=== PATIENT | male | born 1975 | race Hispanic/Latino ===

== ENCOUNTER 2016-12-01 16:59 | Observation (INO) | payer BC ==
[2016-12-01] MEDS ORDERED: Sodium Chloride 0.9% 1,000 ML IV STA (17:52)
[2016-12-01 18:21] LABS: BASO # 0.1 K/uL (0.0-0.2); BASO % 0.5 % (0.0-2.0); EOS # 0.1 K/uL (0.0-0.7); EOS % 0.8 % (0.0-4.0); LYMPH # 1.9 K/uL (1.0-4.3); LYMPH % 13.1 % (20.0-40.0); MEAN CELL VOLUME 90.5 fL (80.0-94.0); MEAN CORPUSCULAR HEMOGLOBIN 29.6 pg (27.0-31.0); MEAN CORPUSCULAR HGB CONC 32.7 g/dL (33.0-37.0); MEAN PLATELET VOLUME 10.5 fL (7.2-11.7); MONO # 1.1 K/uL (0.0-0.8); MONO % 7.3 % (0.0-10.0); RED CELL DISTRIBUTION WIDTH 12.2 % (11.5-14.5); WHITE BLOOD COUNT 14.3 K/uL (4.8-10.8)
[2016-12-01 18:23] LABS: RBC URINE < 1 /hpf (0-3); URINE BILIRUBIN NEGATIVE (NEGATIVE); URINE BLOOD NEGATIVE (NEGATIVE); URINE COLOR Colorless (YELLOW); URINE GLUCOSE (UA) 3+ mg/dL (Normal); URINE KETONE NEGATIVE (NEGATIVE); URINE LEUKOCYTE ESTERASE NEG Leu/uL (Negative); URINE PROTEIN NEGATIVE (NEGATIVE); URINE UROBILINOGEN NORMAL mg/dL (0.2-1.0); WBC URINE < 1 /hpf (0-5)
[2016-12-01 18:26] LABS: CHLORIDE 86 mmol/L (98-107); POTASSIUM 5.5 mmol/L (3.6-5.2); SODIUM 125 mmol/L (132-148)
[2016-12-01 18:28] LABS: GFR AFRICAN-AMERICAN > 60
[2016-12-01 18:29] LABS: ALB/GLOB RATIO 1.2 (1.0-2.1); ALKALINE PHOSPHATASE 133 U/L (38-126); ALT/SGPT 30 U/L (21-72); AST/SGOT 23 U/L (17-59); BILIRUBIN,TOTAL 1.1 mg/dL (0.2-1.3); BLOOD UREA NITROGEN 7 mg/dL (9-20); CALCIUM 9.1 mg/dl (8.6-10.4); CARBON DIOXIDE 22 mmol/L (22-30); TOTAL PROTEIN 8.3 g/dL (6.3-8.3)
[2016-12-01 18:46] LABS: GLUCOSE,RANDOM 958 mg/dL (75-110)
[2016-12-01] MEDS ORDERED: Sodium Chloride 0.9% 1,000 ML IV ONE (18:48)
[2016-12-01] MEDS ORDERED: (Novolin R) Insulin Human Regular 100 units/ml vial IV STA (18:48)
[2016-12-01] MEDS ORDERED: (Novolin R) Insulin Human Regular 100 units/ml vial ONE (18:52)
[2016-12-01] MEDS ORDERED: Sodium Chloride 0.9% 2,000 ML ONE (18:52)
--- NOTE | 2016-12-01 19:14 | C.PDOC ---
Time Seen by Provider: 12/01/16 17:43 Chief Complaint (Nursing): High Blood Sugar History Per: Patient Onset/Duration Of Symptoms: Days (about 1 week) Current Symptoms Are (Timing): Still Present Severity: Severe Current Diabetic Medications: None Associated Infectious Symptoms: Cough, Urinary Frequency, Nausea, Vomiting Treatment Prior To Provider Evaluation: Accucheck Additional History Per: Prior Records Past Medical History Reviewed: Historical Data, Nursing Documentation, Vital Signs Vital Signs: Last Vital Signs Temp 98.8 F 12/01/16 17:07 Pulse 104 H 12/01/16 18:45 Resp 18 12/01/16 18:45 BP 129/82 12/01/16 18:45 Pulse Ox 96 12/01/16 19:15 - Medical History PMH: Anxiety, Depression, Migraine Surgical History: No Surg Hx Family History: States: No Known Family Hx - Social History Hx Tobacco Use: No Hx Alcohol Use: Yes Hx Substance Use: No - Immunization History Hx Tetanus Toxoid Vaccination: No Hx Influenza Vaccination: No Hx Pneumococcal Vaccination: No Review Of Systems Except As Marked, All Systems Reviewed And Found Negative. Constitutional: Positive for: Malaise Cardiovascular: Negative for: Chest Pain Respiratory: Positive for: Cough. Negative for: Shortness of Breath, Hemoptysis Gastrointestinal: Positive for: Nausea, Vomiting. Negative for: Abdominal Pain Genitourinary: Positive for: Frequency Musculoskeletal: Negative for: Neck Pain, Back Pain Skin: Negative for: Rash Neurological: Negative for: Weakness, Numbness, Seizures, Altered Mental Status Physical Exam - Physical Exam Appears: In Acute Distress (mild) Skin: Normal Color, Warm, Dry, No Rash Head: Atraumatic, Normacephalic Eye(s): bilateral: PERRL, EOMI Oral Mucosa: Dry Neck: Normal ROM, Supple Cardiovascular: Rhythm Regular Respiratory: Normal Breath Sounds, No Accessory Muscle Use Gastrointestinal/Abdominal: Soft, No Tenderness Back: No CVA Tenderness Extremity: Normal ROM Neurological/Psych: Oriented x3, Normal Motor, Normal Sensation ED Course And Treatment - Laboratory Results Result Diagrams: 12/01/16 18:09 12/01/16 18:09 Lab Interpretation: Abnormal Interpretation Of Abnormal: Severe hyperglycemia. Negative ketones. ECG: Interpreted By Me, Viewed By Me ECG Rhythm: Sinus Tachycardia, Nonspecific Changes Rate From EC O2 Sat by Pulse Oximetry: 96 Pulse Ox Interpretation: Normal - Radiology CXR: Interpreted by Me, Viewed By Me CXR Interpretation: Yes: No Acute Disease Progress - Interventions Interventions:: Observation, Intravenous fluid - Medications Administered Intravenous: Other (Insulin) - Data Reviewed Data Reviewed: Lab, Diagnostic imaging, EKG, Old records - Patient Status Patient status: Partially improved - Critical Care Citical Care: Excluding Proc Time Critical Care Time: 45 minutes - Continuity of Care Discussed patient case with:: Patient, ED Nurse, Covering for PMD - Patient Plan Patient Plan: Admission Disposition Discussed With : Miguel Angel Goncalves Comment: He accepted pt on hospitalist service. Doctor Will See Patient In The: Hospital Counseled Patient/Family Regarding: Studies Performed, Diagnosis - Disposition Disposition: HOSPITALIZED Disposition Time: 19:30 Condition: SERIOUS - Clinical Impression Clinical Impression: Diabetes mellitus, new onset, Hyperglycemia
--- NOTE | 2016-12-01 20:27 | RAD ---
PROCEDURE: CHEST RADIOGRAPH, 1 VIEW HISTORY: Cough. Hyperglycemia COMPARISON: 12/01/2016 FINDINGS: LUNGS: Mild venous congestion. Mammilated left hemidiaphragm. PLEURA: No pneumothorax or pleural fluid seen. CARDIOVASCULAR: Mild cardiomegaly. OSSEOUS STRUCTURES: No significant abnormalities. VISUALIZED UPPER ABDOMEN: Few distended loops of small bowel in the upper abdomen. OTHER FINDINGS: None. IMPRESSION: Mild venous congestion. Few distended loops of small bowel in the upper abdomen.
--- NOTE | 2016-12-01 20:46 | CP.PCM.HP ---
<Prince Fish - Last Filed: 12/01/16 23:21> History of Present Illness - History of Present Illness History of Present Illness: CC: "increased thirst, nausea/vomiting, vision change" 41 M with PMH of Anxiety and Depression presents to [facility] ED with complaint of increased thirst, nausea/vomiting, vision change since last . Patient woke up and was feeling terrible. He thought it was related to his depression because he has intermittently experienced similar symptoms to a lesser extent in the past. He also had associated abdominal discomfort, joint pain, polyphagia and polyuria. Patient reports that he was vomiting 4-5 times per day, which was the color of the liquids/food he attempted to consume. His symptoms had gotten progressively worse since the onset. Today, his symptoms did not resolve so he decided to be seen. Patient's step father has DM so once he symptoms did not resolve he suspected he may have high blood sugar. Patient currently denying any abdominal pain. He stated that at its worst it was 4-5/10 in severity. He described the pain as a intermittent discomfort that was diffusely located throughout the abdomen. Patient stated eating/drinking exacerbates his symptoms while nothing alleviates them. Also admits fatigue, vision changes, diarrhea, sob. Denies fever/chills, cp, palpitations, weakness, motor/sensory deficits, dizziness/lightheadedness, vertigo, syncope, headache, incontinence, dyuria. numbnes/tingling. PMD: Dr. 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 Present on Admission - Present on Admission Any Indicators Present on Admission: Yes History of DVT/PE: No History of Uncontrolled Diabetes: Yes Urinary Catheter: No Decubitus Ulcer Present: No Review of Systems - Review of Systems All systems: reviewed and no additional remarkable complaints except (as per HPI ) Past Patient History - Past Social History Smoking Status: Never Smoked - NEUROLOGICAL Hx Migraine: Yes - PSYCHIATRIC Hx Anxiety: Yes Hx Depression: Yes Hx Substance Use: No - SURGICAL HISTORY Other/Comment: Kidney procedure - ANESTHESIA Hx Anesthesia: Yes Hx Anesthesia Reactions: No Meds Allergies/Adverse Reactions: Allergies Allergy/AdvReac Type Severity Reaction Status Date / Time hay Allergy Uncoded 12/01/16 17:16 Physical Exam - Constitutional Appears: No Acute Distress - Head Exam Head Exam: ATRAUMATIC, NORMOCEPHALIC - Eye Exam Eye Exam: EOMI, Normal appearance Pupil Exam: PERRL - ENT Exam ENT Exam: Mucous Membranes Moist - Neck Exam Neck exam: Positive for: Normal Inspection - Respiratory Exam Respiratory Exam: Clear to Auscultation Bilateral, NORMAL BREATHING PATTERN - Cardiovascular Exam Cardiovascular Exam: Tachycardia (104), REGULAR RHYTHM, +S1, +S2 - GI/Abdominal Exam GI & Abdominal Exam: Hyperactive Bowel Sounds, Soft. absent: Distended, Firm, Guarding, Rebound, Tenderness - Extremities Exam Extremities exam: Positive for: normal capillary refill, pedal pulses present. Negative for: calf tenderness, pedal edema - Back Exam Back exam: absent: CVA tenderness (L), CVA tenderness (R) - Neurological Exam Neurological exam: Alert, CN II-XII Intact, Oriented x3, Reflexes Normal - Psychiatric Exam Psychiatric exam: Normal Affect, Normal Mood - Skin Skin Exam: Dry, Intact, Normal Color, Warm Results - Vital Signs Recent Vital Signs: Last Vital Signs Temp 98.8 F 12/01/16 17:07 Pulse 104 H 12/01/16 18:45 Resp 18 12/01/16 18:45 BP 129/82 12/01/16 18:45 Pulse Ox 96 12/01/16 20:00 - Labs Result Diagrams: 12/01/16 18:09 12/01/16 18:09 Assessment & Plan - Assessment and Plan (Free Text) Plan: 1. New Onset DM med/surg CXR: mild venous congestion, distended loop of small bowel EKG ISS ACHS HA1c, TSH/T4, Lipid panel ECHO NS 70 cc/hr 2. Abdominal pain Zofran 4 mg IVP Q6H PRN Protonix 40 mg IVP daily NS 70 cc/hr CT abd/Pelvis CXR: mild venous congestion, distended loop of small bowel 3. Anxiety/Depression Effexor 300 mg PO daily Seroquel 300 mg PO HS 4. Prophylactic Measures Zofran 4 mg IVP Q6H PRN Lovenox 40 mg SC daily Protonix 40 mg IVP daily <Miguel Angel Goncalves - Last Filed: 12/02/16 06:16> Results - Vital Signs Recent Vital Signs: Last Vital Signs Temp 98.5 F 12/02/16 00:00 Pulse 112 H 12/02/16 00:00 Resp 20 12/02/16 00:00 BP 110/71 12/02/16 00:00 Pulse Ox 95 12/02/16 00:00 - Labs Result Diagrams: 12/01/16 18:09 12/01/16 18:09 Labs: Laboratory Results - last 24 hr 12/01/16 12/02/16 21:09 02:13 POC Glucose (mg/dL) 368 H 337 H Assessment & Plan - Date & Time Date: 12/02/16 (I have seen and examined the patient. I agree with the findings and plan of care as documented by Dr. Fish. Patient with new onset diabetes. Accuchecks. Hemoglobin A1C. NISS. Consider starting patient on metformin. Also with abdominal pain. N/V. Check CT abd/pelvis. Symptomatic treatment. Monitor for acute changes.) Time: 06:15 Attending/Attestation - Attestation I have personally seen and examined this patient.: Yes I have fully participated in the care of the patient.: Yes I have reviewed all pertinent clinical information: Yes
[2016-12-01] MEDS: Sodium Chloride 0.9% 1,000 ML IV SCH (21:12)
[2016-12-01] MEDS: (Novolin R) Insulin Human Regular 100 units/ml vial SC SCH (22:22)
[2016-12-01 22:53] VITALS: RESP 20
[2016-12-02 07:59] LABS: INR 1.2
[2016-12-02 08:06] LABS: HEMATOCRIT 37.5 % (35.0-51.0); MONO % 7.3 % (0.0-10.0); WHITE BLOOD COUNT 13.3 K/uL (4.8-10.8)
[2016-12-02 08:07] LABS: CHLORIDE 99 mmol/L (98-107)
[2016-12-02 08:08] LABS: POTASSIUM 3.7 mmol/L (3.6-5.2); SODIUM 135 mmol/L (132-148)
[2016-12-02 08:10] LABS: ALB/GLOB RATIO 1.1 (1.0-2.1); AST/SGOT 18 U/L (17-59); CARBON DIOXIDE 25 mmol/L (22-30); CHOLESTEROL 185 mg/dL (0-199); GFR AFRICAN-AMERICAN > 60; TOTAL PROTEIN 6.8 g/dL (6.3-8.3)
[2016-12-02 08:11] LABS: ALKALINE PHOSPHATASE 95 U/L (38-126); ALT/SGPT 27 U/L (21-72); BLOOD UREA NITROGEN 6 mg/dL (9-20); GLUCOSE,RANDOM 288 mg/dL (75-110)
[2016-12-02 08:14] LABS: BASO % 0.3 % (0.0-2.0); EOS # 0.5 K/uL (0.0-0.7); EOS % 3.4 % (0.0-4.0); LYMPH # 4.2 K/uL (1.0-4.3); LYMPH % 31.6 % (20.0-40.0); MEAN CORPUSCULAR HEMOGLOBIN 29.8 pg (27.0-31.0); MEAN CORPUSCULAR HGB CONC 34.7 g/dL (33.0-37.0); NRBC % 0.2 % (0.0-2.0); RED CELL DISTRIBUTION WIDTH 12.1 % (11.5-14.5)
[2016-12-02 08:18] VITALS: O2SAT 97
[2016-12-02 08:25] LABS: T4 7.67 ug/dL (5.5-11.0)
[2016-12-02 08:27] LABS: MEAN CELL VOLUME 85.8 fL (80.0-94.0)
[2016-12-02 08:39] LABS: THYROID STIMULATING HORMONE 3.55 mIU/L (0.46-4.68)
[2016-12-02] MEDS ORDERED: Iohexol 240 (50 ml) PO ONE (09:00)
[2016-12-02] MEDS: (Novolin R) Insulin Human Regular 100 units/ml vial SC SCH ×3 (09:06→17:20)
[2016-12-02] MEDS ORDERED: Venlafaxine 150 mg ER Cap PO SCH (10:00)
[2016-12-02] MEDS ORDERED: Enoxaparin 40 mg Syringe SC SCH (10:00)
--- NOTE | 2016-12-02 12:37 | CT ---
PROCEDURE: CT Abdomen and Pelvis with Oral contrast. HISTORY: distended loop of small bowel on cxr, nausea/vomit COMPARISON: None. TECHNIQUE: Contiguous axial images of the abdomen and pelvis. Oral contrast was administered. No IV contrast given. Coronal and Sagittal reformats generated. Radiation dose: Total exam DLP = 850.7 sick mGy-cm. This CT exam was performed using one or more of the following dose reduction techniques: Automated exposure control, adjustment of the mA and/or kV according to patient size, and/or use of iterative reconstruction technique. FINDINGS: LOWER THORAX: No evidence of acute pathology. Ground-glass small nodules seen at the left lung lower lobe measures 5 millimeter. LIVER: Moderate to mildly severe fatty liver infiltration is noted. The portal vein is patent. GALLBLADDER AND BILE DUCTS: No evidence of cholecystitis. PANCREAS: Unremarkable. No mass. No ductal dilatation. SPLEEN: Unremarkable. No splenomegaly. ADRENALS: Unremarkable. KIDNEYS AND URETERS: Diffuse enlargement of the lower pole right kidney without definite evidence of discrete mass lesion in this noncontrast exam. No evidence of hydronephrosis. No evidence of nephrolithiasis. Unremarkable. No stone or hydronephrosis. BLADDER: The urinary bladder is moderately distended. REPRODUCTIVE: Unremarkable. APPENDIX: Unremarkable. BOWEL: Mildly diffuse small bowel wall thickening suspicious for enteritis. . No obstruction. No gross mural thickening. PERITONEUM: Unremarkable. No fluid collection. No free air. LYMPH NODES: Unremarkable. No enlarged lymph nodes. VASCULATURE: Unremarkable. No aortic aneurysm. BONES: No fracture or destructive lesion. OTHER FINDINGS: None. IMPRESSION: No evidence of bowel obstruction or focal dietitian of the bowel loops. Mild diffuse small bowel wall thickening suspicious for enteritis. Moderately distended urinary bladder. Moderate to mildly severe hepatic steatosis. Diffuse enlargement of the lower pole right kidney of uncertain etiology without definite evidence of discrete mass lesion in this noncontrast exam. If indicated further assessment by ultrasound may be obtained. 5 millimeter ground-glass nodule at the left lower lobe. Six-month follow-up reassessment is suggested.
[2016-12-02] MEDS: Sodium Chloride 0.9% 1,000 ML IV SCH (12:54)
--- NOTE | 2016-12-02 16:01 | US ---
PROCEDURE: Ultrasound of the Kidneys HISTORY: please do post void - mildly distended bladder COMPARISON: Comparison is made to the previous same-day CT of the abdomen and pelvis.. TECHNIQUE: Sonogram of the kidneys. FINDINGS: RIGHT KIDNEY: Measures: 11.9 x 5.3 x 5.4 cm. Normal in size, contour and echogenicity. No stone, solid mass lesion or hydronephrosis visualized. LEFT KIDNEY: Measures: 11.4 x 4.9 x 5.5 cm. Normal in size, contour and echogenicity. No stone, solid mass lesion or hydronephrosis visualized. OTHER FINDINGS: Patient voided before the exam. The postvoid measurement of the bladder is 4.5 x 1.3 x 4 centimeter with a total volume of 12.6. IMPRESSION: Grossly unremarkable ultrasound examination of the kidneys. Calculated post void residual is 12.6 mL.
--- NOTE | 2016-12-02 16:35 | CP.PCM.DIS ---
<Nona Dowling - Last Filed: 12/02/16 16:48> Provider - Provider Date of Admission: 12/01/16 20:00 Attending physician: Miguel Angel Goncalves MD Primary care physician: Dr. Campo Consults: none Time Spent in preparation of Discharge (in minutes): 35 Diagnosis - Discharge Diagnosis (1) Diabetes mellitus, new onset Status: Acute Comment: Metformin, ASA, Crestor, Lisionpril. Check sugars 4x/day. f/u PCP Hospital Course - Lab Results Lab Results: Most Recent Lab Values WBC 13.3 K/uL (4.8-10.8) H 12/02/16 07:39 RBC 4.37 Mil/uL (4.40-5.90) L 12/02/16 07:39 Hgb 13.0 g/dL (12.0-18.0) D 12/02/16 07:39 Hct 37.5 % (35.0-51.0) 12/02/16 07:39 MCV 85.8 fL (80.0-94.0) D 12/02/16 07:39 MCH 29.8 pg (27.0-31.0) 12/02/16 07:39 MCHC 34.7 g/dL (33.0-37.0) 12/02/16 07:39 RDW 12.1 % (11.5-14.5) 12/02/16 07:39 Plt Count 252 K/uL (130-400) 12/02/16 07:39 MPV 10.0 fL (7.2-11.7) 12/02/16 07:39 Neut % (Auto) 57.4 % (50.0-75.0) 12/02/16 07:39 Lymph % (Auto) 31.6 % (20.0-40.0) 12/02/16 07:39 [place] % (Auto) 7.3 % (0.0-10.0) 12/02/16 07:39 Eos % (Auto) 3.4 % (0.0-4.0) 12/02/16 07:39 Baso % (Auto) 0.3 % (0.0-2.0) 12/02/16 07:39 Neut # 7.6 K/uL (1.8-7.0) H 12/02/16 07:39 Lymph # 4.2 K/uL (1.0-4.3) 12/02/16 07:39 [place] # 1.0 K/uL (0.0-0.8) H 12/02/16 07:39 Eos # 0.5 K/uL (0.0-0.7) 12/02/16 07:39 Baso # 0.0 K/uL (0.0-0.2) 12/02/16 07:39 PT 13.3 SECONDS (9.7-12.2) H 12/02/16 07:39 INR 1.2 12/02/16 07:39 APTT 30 SECONDS (21-34) 12/02/16 07:39 Sodium 135 mmol/L (132-148) 12/02/16 07:39 Potassium 3.7 mmol/L (3.6-5.2) 12/02/16 07:39 Chloride 99 mmol/L (98-107) 12/02/16 07:39 Carbon Dioxide 25 mmol/L (22-30) 12/02/16 07:39 Anion Gap 14 (10-20) 12/02/16 07:39 BUN 6 mg/dL (9-20) L 12/02/16 07:39 Creatinine 0.7 MG/DL (0.8-1.5) L 12/02/16 07:39 Est GFR ( Amer) > 60 12/02/16 07:39 Est GFR (Non-Af Amer) > 60 12/02/16 07:39 POC Glucose (mg/dL) 258 mg/dL (65-110) H 12/02/16 16:17 Random Glucose 288 mg/dL (75-110) H 12/02/16 07:39 Hemoglobin A1c 12.4 % (4.2-6.5) H D 12/02/16 07:39 Calcium 8.0 mg/dl (8.6-10.4) L 12/02/16 07:39 Total Bilirubin 1.0 mg/dL (0.2-1.3) 12/02/16 07:39 AST 18 U/L (17-59) 12/02/16 07:39 ALT 27 U/L (21-72) 12/02/16 07:39 Alkaline Phosphatase 95 U/L (38-126) 12/02/16 07:39 Total Protein 6.8 g/dL (6.3-8.3) 12/02/16 07:39 Albumin 3.6 g/dL (3.5-5.0) 12/02/16 07:39 Globulin 3.2 gm/dL (2.2-3.9) 12/02/16 07:39 Albumin/Globulin Ratio 1.1 (1.0-2.1) 12/02/16 07:39 Triglycerides 478 mg/dL (0-149) H D 12/02/16 07:39 Cholesterol 185 mg/dL (0-199) 12/02/16 07:39 LDL Cholesterol Direct 76 mg/dL (0-129) 12/02/16 07:39 HDL Cholesterol 24 mg/dL (30-70) L 12/02/16 07:39 Thyroxine (T4) 7.67 ug/dL (5.5-11.0) 12/02/16 07:39 TSH 3rd Generation 3.55 mIU/L (0.46-4.68) 12/02/16 07:39 Urine Color Colorless (YELLOW) 12/01/16 18:09 Urine Clarity Clear (Clear) 12/01/16 18:09 Urine pH 6.0 (5.0-8.0) 12/01/16 18:09 Ur Specific [place] 1.026 (1.003-1.030) 12/01/16 18:09 Urine Protein Negative mg/dL (NEGATIVE) 12/01/16 18:09 Urine Glucose (UA) 3+ mg/dL (Normal) H 12/01/16 18:09 Urine Ketones Negative mg/dL (NEGATIVE) 12/01/16 18:09 Urine Blood Negative (NEGATIVE) 12/01/16 18:09 Urine Nitrate Negative (NEGATIVE) 12/01/16 18:09 Urine Bilirubin Negative (NEGATIVE) 12/01/16 18:09 Urine Urobilinogen Normal mg/dL (0.2-1.0) 12/01/16 18:09 Ur Leukocyte Esterase Neg Jaime/uL (Negative) 12/01/16 18:09 Urine WBC (Auto) < 1 /hpf (0-5) 12/01/16 18:09 Urine RBC (Auto) < 1 /hpf (0-3) 12/01/16 18:09 Ur Squamous Epith Cells < 1 /hpf (0-5) 12/01/16 18:09 Serum Ketones Negative (NEGATIVE) 12/01/16 18:09 - Hospital Course Hospital Course: On admission: 41 M with PMH of Anxiety and Depression presents to [facility] ED with complaint of increased thirst, nausea/vomiting, vision change since last . Patient woke up and was feeling terrible. He thought it was related to his depression because he has intermittently experienced similar symptoms to a lesser extent in the past. He also had associated abdominal discomfort, joint pain, polyphagia and polyuria. Patient reports that he was vomiting 4-5 times per day, which was the color of the liquids/food he attempted to consume. His symptoms had gotten progressively worse since the onset. Today, his symptoms did not resolve so he decided to be seen. Patient's step father has DM so once he symptoms did not resolve he suspected he may have high blood sugar. Patient currently denying any abdominal pain. He stated that at its worst it was 4-5/10 in severity. He described the pain as a intermittent discomfort that was diffusely located throughout the abdomen. Patient stated eating/drinking exacerbates his symptoms while nothing alleviates them. Also admits fatigue, vision changes, diarrhea, sob. Denies fever/chills, cp, palpitations, weakness, motor/sensory deficits, dizziness/ lightheadedness, vertigo, syncope, headache, incontinence, dyuria. numbness/ tingling. During Hospital Stay: Patient's HbA1c was 12.4. He has no serum ketones and 3+ glucose in the urine. Patient was hydrated and given insulin. His electrolytes were within normal limits. Patient's symptoms such as N/V, abd pain resolved. Chest Xray showed mild venous congestion with a distended loop of small bowel. CT abd/pelvis with contrast exam showed: mildly distended urinary bladder moderate to mildly severe hepatic steatosis Diffuse enlargement of lower pole of R kidney 5mm ground glass nodule at left lower lung Patient then had a renal/bladder US which showed a post void residual urine volume of 12mL and a normal appearing R kidney. Patient will need a follow up CT scan to monitor the pulmonary nodule in 6 months. Patient was given diabetic education (etc. diet and lifestyle modifications) Patient is stable for discharge. Patient is to follow up with his primary care Dr. Campo within one week of hospital discharge for his diabetes management. Patient is to resume his home medications and take the following new meds: Aspirin 81mg one by mouth daily Lisinopril 5 mg one by mouth daily Crestor 10mg one by mouth at night Metformin 1000 mg one by mouth twice a day - patient is to START this medication on WednesdayDECEMBER 06 in the morning. He had a contrast examination during his stay in the hospital and this medication combined with contrast can injure the kidneys. Patient is to check his blood sugar 4 times a day and bring his sugar logs to his follow up appointment. He was given a script for a glucometer and supplies. Patient will need referrals to see and eye and foot doctor. Patient is to have a follow up CT scan of the lungs in 6 months for a pulmonary nodule found during his hospitalization. Patient is to return to the ED if symptoms return. All instructions explained to the patient and he agrees. Discharge Exam - Head Exam Head Exam: ATRAUMATIC, NORMOCEPHALIC - Eye Exam Eye Exam: EOMI, Normal appearance, PERRL Pupil Exam: NORMAL ACCOMODATION - ENT Exam ENT Exam: Mucous Membranes Moist - Respiratory Exam Respiratory Exam: Clear to PA & Lateral, NORMAL BREATHING PATTERN. absent: Accessory Muscle Use, Chest Wall Tenderness, Rales, Rhonchi, Wheezes, Respiratory Distress - Cardiovascular Exam Cardiovascular Exam: REGULAR RHYTHM, +S1, +S2 - GI/Abdominal Exam GI & Abdominal Exam: Normal Bowel Sounds, Soft. absent: Distended, Firm, Guarding, Tenderness - Extremities Exam Extremities exam: normal inspection Additional comments: No foot ulcers - Back Exam Back exam: NORMAL INSPECTION. absent: CVA tenderness (L), CVA tenderness (R), paraspinal tenderness - Neurological Exam Neurological exam: Alert, Oriented x3 - Psychiatric Exam Psychiatric exam: Normal Affect, Normal Mood - Skin Skin Exam: Dry, Intact, Normal Color, Warm Discharge Plan - Discharge Medications Prescriptions: RX: Lisinopril [Zestril] 5 mg PO DAILY #30 tab RX: MetFORMIN [glucoPHAGE] 1,000 mg PO BID #60 tab Rosuvastatin Calcium [Crestor] 10 mg PO HS #30 tab - Follow Up Plan Condition: GOOD Disposition: HOME/ ROUTINE Instructions: Lisinopril (By mouth), Metformin (By mouth), Rosuvastatin (By mouth), How to Check Your Blood Sugar (DC), Diabetic Foot Care (DC), Meal Planning with Diabetes Exchanges (DC), Diabetic Hyperglycemia (DC) Additional Instructions: Patient is stable for discharge. Patient is to follow up with his primary care Dr. Campo within one week of hospital discharge for his diabetes management. Patient is to resume his home medications and take the following new meds: Aspirin 81mg one by mouth daily Lisinopril 5 mg one by mouth daily Crestor 10mg one by mouth at night Metformin 1000 mg one by mouth twice a day - patient is to START this medication on WednesdayDECEMBER 05 in the morning. He had a contrast examination during his stay in the hospital and this medication combined with contrast can injure the kidneys. Patient is to check his blood sugar 4 times a day and bring his sugar logs to his follow up appointment. He was given a script for a glucometer and supplies. Patient will need referrals to see and eye and foot doctor. Patient is to have a follow up CT scan of the lungs in 6 months for a pulmonary nodule found during his hospitalization. Patient is to return to the ED if symptoms return. All instructions explained to the patient and he agrees. Referrals: Duran Campo DO [[facility]] - <Jennifer An V - Last Filed: 12/03/16 22:08> Provider - Provider Date of Admission: 12/01/16 20:00 Attending physician: Jennifer An DO Hospital Course - Lab Results Lab Results: Most Recent Lab Values WBC 13.3 K/uL (4.8-10.8) H 12/02/16 07:39 RBC 4.37 Mil/uL (4.40-5.90) L 12/02/16 07:39 Hgb 13.0 g/dL (12.0-18.0) D 12/02/16 07:39 Hct 37.5 % (35.0-51.0) 12/02/16 07:39 MCV 85.8 fL (80.0-94.0) D 12/02/16 07:39 MCH 29.8 pg (27.0-31.0) 12/02/16 07:39 MCHC 34.7 g/dL (33.0-37.0) 12/02/16 07:39 RDW 12.1 % (11.5-14.5) 12/02/16 07:39 Plt Count 252 K/uL (130-400) 12/02/16 07:39 MPV 10.0 fL (7.2-11.7) 12/02/16 07:39 Neut % (Auto) 57.4 % (50.0-75.0) 12/02/16 07:39 Lymph % (Auto) 31.6 % (20.0-40.0) 12/02/16 07:39 [place] % (Auto) 7.3 % (0.0-10.0) 12/02/16 07:39 Eos % (Auto) 3.4 % (0.0-4.0) 12/02/16 07:39 Baso % (Auto) 0.3 % (0.0-2.0) 12/02/16 07:39 Neut # 7.6 K/uL (1.8-7.0) H 12/02/16 07:39 Lymph # 4.2 K/uL (1.0-4.3) 12/02/16 07:39 [place] # 1.0 K/uL (0.0-0.8) H 12/02/16 07:39 Eos # 0.5 K/uL (0.0-0.7) 12/02/16 07:39 Baso # 0.0 K/uL (0.0-0.2) 12/02/16 07:39 PT 13.3 SECONDS (9.7-12.2) H 12/02/16 07:39 INR 1.2 12/02/16 07:39 APTT 30 SECONDS (21-34) 12/02/16 07:39 Sodium 135 mmol/L (132-148) 12/02/16 07:39 Potassium 3.7 mmol/L (3.6-5.2) 12/02/16 07:39 Chloride 99 mmol/L (98-107) 12/02/16 07:39 Carbon Dioxide 25 mmol/L (22-30) 12/02/16 07:39 Anion Gap 14 (10-20) 12/02/16 07:39 BUN 6 mg/dL (9-20) L 12/02/16 07:39 Creatinine 0.7 MG/DL (0.8-1.5) L 12/02/16 07:39 Est GFR ( Amer) > 60 12/02/16 07:39 Est GFR (Non-Af Amer) > 60 12/02/16 07:39 POC Glucose (mg/dL) 258 mg/dL (65-110) H 12/02/16 16:17 Random Glucose 288 mg/dL (75-110) H 12/02/16 07:39 Hemoglobin A1c 12.4 % (4.2-6.5) H D 12/02/16 07:39 Calcium 8.0 mg/dl (8.6-10.4) L 12/02/16 07:39 Total Bilirubin 1.0 mg/dL (0.2-1.3) 12/02/16 07:39 AST 18 U/L (17-59) 12/02/16 07:39 ALT 27 U/L (21-72) 12/02/16 07:39 Alkaline Phosphatase 95 U/L (38-126) 12/02/16 07:39 Total Protein 6.8 g/dL (6.3-8.3) 12/02/16 07:39 Albumin 3.6 g/dL (3.5-5.0) 12/02/16 07:39 Globulin 3.2 gm/dL (2.2-3.9) 12/02/16 07:39 Albumin/Globulin Ratio 1.1 (1.0-2.1) 12/02/16 07:39 Triglycerides 478 mg/dL (0-149) H D 12/02/16 07:39 Cholesterol 185 mg/dL (0-199) 12/02/16 07:39 LDL Cholesterol Direct 76 mg/dL (0-129) 12/02/16 07:39 HDL Cholesterol 24 mg/dL (30-70) L 12/02/16 07:39 Thyroxine (T4) 7.67 ug/dL (5.5-11.0) 12/02/16 07:39 TSH 3rd Generation 3.55 mIU/L (0.46-4.68) 12/02/16 07:39 Urine Color Colorless (YELLOW) 12/01/16 18:09 Urine Clarity Clear (Clear) 12/01/16 18:09 Urine pH 6.0 (5.0-8.0) 12/01/16 18:09 Ur Specific [place] 1.026 (1.003-1.030) 12/01/16 18:09 Urine Protein Negative mg/dL (NEGATIVE) 12/01/16 18:09 Urine Glucose (UA) 3+ mg/dL (Normal) H 12/01/16 18:09 Urine Ketones Negative mg/dL (NEGATIVE) 12/01/16 18:09 Urine Blood Negative (NEGATIVE) 12/01/16 18:09 Urine Nitrate Negative (NEGATIVE) 12/01/16 18:09 Urine Bilirubin Negative (NEGATIVE) 12/01/16 18:09 Urine Urobilinogen Normal mg/dL (0.2-1.0) 12/01/16 18:09 Ur Leukocyte Esterase Neg Jaime/uL (Negative) 12/01/16 18:09 Urine WBC (Auto) < 1 /hpf (0-5) 12/01/16 18:09 Urine RBC (Auto) < 1 /hpf (0-3) 12/01/16 18:09 Ur Squamous Epith Cells < 1 /hpf (0-5) 12/01/16 18:09 Serum Ketones Negative (NEGATIVE) 12/01/16 18:09 Attending/Attestation - Attestation I have personally seen and examined this patient.: Yes I have fully participated in the care of the patient.: Yes I have reviewed all pertinent clinical information, including history, physical exam and plan: Yes Notes (Text): Patient seen, examined, and case discussed with day-time resident. Patient seen during rounds today. Patient denies history of diabetes and denies family history of diabetes. Patient reports his stepfather from diabetes. Patient reports history of cholestrol problems. Patient denies other acute problems. Patient completed CT Abdomen/Pelvis and Renal US today. Patient is urinating well. Patient advised he will need to started medication for his new-onset diabetes given he is medication naive. Patient advised to wait 48-72 hours since he had contrast with CT scan prior to starting Metformin. Patient to start Metformin 1000mg PO bid, Lisinopril 5mg PO daily, and Crestor 5mg PO qHS, and prophylactic Aspirin. Patient advised he will need to start making sugar diary-- >record sugars 4x a day and to bring to his PCP to help with further management regarding his diabetes. Per CT findings, patient to follow-up on pulmonary nodule noted on CT findings. 1. New onset diabetes * 1) Aspirin 81mg one by mouth daily (30/0) * 2) Lisinopril 5 mg one by mouth daily (30/0) * 3) Crestor 10mg one by mouth at night (30/0) * 4) Metformin 1000 mg one by mouth twice a day (60/0) - patient is to START this medication on WednesdayDECEMBER 05 in the morning. He had a contrast examination during his stay in the hospital and this medication combined with contrast can injure the kidneys. * Patient is to check his blood sugar 4 times a day and bring his sugar logs to his follow up appointment. He was given a script for a glucometer and supplies including lancets, syringes, and test strips. Patient will need referrals to see and eye and foot doctor for annual screenings in regards to his diabetes. 2. Pulmonary Nodule * Patient is to have a follow up CT scan of the lungs in 6 months for a pulmonary nodule found during his hospitalization. New Prescriptions upon discharge: 1) Aspirin 81mg one by mouth daily (30/0) 2) Lisinopril 5 mg one by mouth daily (30/0) 3) Crestor 10mg one by mouth at night (30/0) 4) Metformin 1000 mg one by mouth twice a day (60/0) - patient is to START this medication on WednesdayDECEMBER 05 in the morning. He had a contrast examination during his stay in the hospital and this medication combined with contrast can injure the kidneys. Patient is to check his blood sugar 4 times a day and bring his sugar logs to his follow up appointment. He was given a script for a glucometer and supplies including lancets, syringes, and test strips. Patient will need referrals to see and eye and foot doctor for annual screenings in regards to his diabetes. Patient is to have a follow up CT scan of the lungs in 6 months for a pulmonary nodule found during his hospitalization. Patient is to return to the ED if symptoms return. All instructions explained to the patient and he agrees. Patient is medically stable for discharge. Copy of discharge summary sent via [employer] to primary care doctor: Dr. Shea Cabrera.
[2016-12-02 16:50] VITALS: BP 121/82; PULSE 103; TEMP 99.3
--- NOTE | 2016-12-02 18:28 | CARD ---
APPROVED REPORT EKG Measurement Heart [id number] <Conclusion> Sinus tachycardia Inferior infarct, age undetermined Anteroseptal infarct, age undetermined Abnormal ECG
[2016-12-03] MEDS ORDERED: Pneumococcal 23-Valent Vaccine IM ONE (10:00)
== END 2016-12-02 19:20 | disposition home or self-care (01) ==
LOC: C.ER 16:59 → C.3T 20:00 → INTOOBSV 20:00
PROVIDERS: ADMIT Hospitalist; ATTEND Hospitalist
DX: E11.65 Type 2 diabetes mellitus with hyperglycemia (principal); F32.9 Major depressive disorder, single episode, unspecified; G43.909 Migraine, unspecified, not intractable, without status migrainosus; F41.9 Anxiety disorder, unspecified
CPT/HCPCS: 36415; 71010; 74176; 76770; 76857; 80053; 80061; 81001; 82009; 82948; 83036; 84436; 84443; 85025; 85610; 85730; 93005; 96361; 96374; 99285; C9113; G0378; J1650; J7040; Q9966